=== PATIENT | male | born 1935 | race Caucasian/White ===

== ENCOUNTER 2017-10-08 11:58 | Inpatient (IN) ==
[2017-10-01 15:35] LABS: Basophils # (Auto) 0.1 K/mcL (0.0-0.3); Basophils % (Auto) 0.9 % (0.0-2.0); Eosinophils # (Auto) 0.5 K/mcL (0.0-0.7); Eosinophils % (Auto) 4.2 % (0.0-7.0); Granulocytes % (Auto) 58.2 % (38.0-78.0); Lymphocytes # (Auto) 2.8 K/mcL (1.5-4.8); Lymphocytes % (Auto) 25.3 % (15.5-49.0); Mean Cell Volume 88.1 fL (80.0-100.0); Mean Corpuscular HGB Conc 32.7 g/dL (31.0-36.0); Mean Corpuscular Hemoglobin 28.8 pg (26.0-34.0); Monocytes # (Auto) 1.3 K/mcL (0.1-0.9); Monocytes % (Auto) 11.4 % (1.0-12.0); Platelet Count 427 K/mcL (140-440); RBC 4.14 M/mcL (4.50-5.90); Red Cell Distribution Width 13.2 % (11.5-14.5)
[2017-10-01 15:45] LABS: Appearance,Urine CLEAR; Bilirubin,Urine NEG (NEG); Color,Urine YELLOW; Glucose,Urine (UA) NEGATIVE (NEG); Leukocyte Esterase,Urine NEG /uL (NEG); Protein,Urine NEG (NEG); Specific Gravity,Urine 1.021 (1.000-1.035); Urine Blood NEG mg/dL (<0.03); Urobilinogen,Urine NEG (NEG)
[2017-10-01 16:14] LABS: Blood Urea Nitrogen 18 mg/dl (8-23)
[~2017-10-08 11:58] MED LIST: CELECOXIB 200 MG CAPSULE PO SCH; PREGABALIN 75 MG CAPSULE PO SCH; ceFAZolin 1 GM VIAL IV SCH; oxyCODONE 10 MG TAB.ER.12H PO SCH
[2017-10-08] MEDS ORDERED: HEPARIN 10,000 UNIT/ML VIAL IR ONE (13:44)
[2017-10-08] MEDS ORDERED: LIDOCAINE HCL/PF 100 MG/5 ML SYRINGE IV ONE (14:05)
[2017-10-08] MEDS ORDERED: PROPOFOL 200 MG/20 ML VIAL IV ONE (14:05)
[2017-10-08] MEDS ORDERED: MIDAZOLAM 2 MG/2 ML VIAL IV ONE (14:05)
[2017-10-08] MEDS ORDERED: GLYCOPYRROLATE 0.2 MG/ML VIAL IV ONE (14:05)
[2017-10-08] MEDS ORDERED: PHENYLEPHRINE 10 MG/ML VIAL IV ONE (14:05)
[2017-10-08] MEDS ORDERED: KETAMINE 100 MG/ML ML IV ONE (14:05)
[2017-10-08] MEDS ORDERED: DEXAMETHASONE 10 MG/ML VIAL IV ONE (14:05)
[2017-10-08] MEDS ORDERED: ePHEDrine 50 MG/ML AMPUL IV ONE (14:05)
[2017-10-08] MEDS ORDERED: fentaNYL 100 MCG/2 ML VIAL IV ONE (14:05)
[2017-10-08] MEDS ORDERED: TRANEXAMIC ACID 1,000 MG/10 ML VIAL IV ONE ×2 (14:05→15:51)
[2017-10-08] MEDS ORDERED: ONDANSETRON 4 MG/2 ML VIAL IV ONE (14:05)
[2017-10-08] MEDS ORDERED: IPRATROPIUM/ALBUTEROL 3 ML AMPUL.NEB NEB PRN (14:29)
[2017-10-08] MEDS ORDERED: ACETAMINOPHEN 1,000 MG/100 ML BOTTLE IV ONE (14:29)
[2017-10-08] MEDS ORDERED: PROMETHAZINE 25 MG/ML VIAL IV PRN (14:29)
[2017-10-08] MEDS ORDERED: MEPERIDINE 25 MG/ML SYRINGE IV PRN (14:29)
[2017-10-08] MEDS ORDERED: BENZOCAINE/MENTHOL 1 LOZENGE PO PRN ×2 (14:29→15:51)
[2017-10-08] MEDS ORDERED: METHOCARBAMOL 1,000 MG/10 ML VIAL IV PRN (14:29)
[2017-10-08] MEDS ORDERED: fentaNYL 100 MCG/2 ML VIAL IV PRN (14:29)
[2017-10-08] MEDS ORDERED: ONDANSETRON 4 MG/2 ML VIAL IV PRN ×2 (14:29→15:51)
[2017-10-08] MEDS ORDERED: LACTATED RINGERS 250 ML IV PRN (14:29)
[2017-10-08] MEDS ORDERED: NALOXONE HCL 0.4 MG/ML VIAL IV PRN (14:29)
[2017-10-08] MEDS ORDERED: FLUMAZENIL 0.1 MG/ML ML IV PRN (14:29)
[2017-10-08] MEDS ORDERED: LACTATED RINGERS 1,000 ML IV SCH (14:30)
--- NOTE | 2017-10-08 15:49 | Brief Operative Note ---
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
[2017-10-08] MEDS ORDERED: MAGNESIUM HYDROXIDE 30 ML ORAL.SUSP PO PRN (15:51)
[2017-10-08] MEDS ORDERED: POLYETHYLENE GLYCOL 3350 17 GM PACKET PO PRN (15:51)
[2017-10-08] MEDS ORDERED: FLEETS ADULT ENEMA PR PRN (15:51)
[2017-10-08] MEDS ORDERED: BISACODYL 10 MG SUPP.RECT PR PRN (15:51)
--- NOTE | 2017-10-08 16:44 | XRay Report ---
HISTORY: Reason for Exam:Post-Op Total Hip FINDINGS: There is a well-positioned left total hip prosthesis. No fracture is present and there are no abnormal soft tissue calcifications around the joint. There are old healed fractures of the pubic bones. The L5 S1 disc space is severely narrowed. IMPRESSION: Well-positioned left hip prosthesis Interpreted and Authenticated by: Severiano Fine 10/08/17
[2017-10-08] MEDS: 0.9 % SODIUM CHLORIDE 1,000 ML IV SCH (17:24)
[2017-10-08] MEDS: KETOROLAC 15 MG/ML VIAL IV PRN (18:05)
[2017-10-08] MEDS: ASPIRIN 325 MG ENTERIC COATED TABLET PO SCH (19:05)
[2017-10-08] MEDS: DOCUSATE SODIUM 100 MG CAPSULE PO SCH (19:05)
[2017-10-08] MEDS: HYDROcodone/APAP 5/325MG TABLET PO PRN (19:05)
[2017-10-08] MEDS ORDERED: SENNOSIDES 1 TABLET PO SCH (21:00)
[2017-10-08] MEDS ORDERED: ZOLPIDEM 5 MG TABLET PO SCH (21:00)
[2017-10-08] MEDS: 0.9 % SODIUM CHLORIDE 10 ML SYRINGE IV SCH (23:12)
[2017-10-08] MEDS: ceFAZolin 1 GM VIAL IV SCH (23:21)
[2017-10-09] MEDS: 0.9 % SODIUM CHLORIDE 1,000 ML IV SCH ×2 (04:05→12:00)
[2017-10-09] MEDS: ceFAZolin 1 GM VIAL IV SCH (04:32)
[2017-10-09] MEDS: 0.9 % SODIUM CHLORIDE 10 ML SYRINGE IV SCH ×2 (04:33→16:08)
[2017-10-09] MEDS: HYDROcodone/APAP 5/325MG TABLET PO PRN ×3 (04:35→16:07)
[2017-10-09] MEDS: KETOROLAC 15 MG/ML VIAL IV PRN (04:36)
[2017-10-09] MEDS ORDERED: TAMSULOSIN 0.4 MG CAPSULE PO ONE (07:32)
--- NOTE | 2017-10-09 07:34 | Orthopedic Progress Note ---
Subjective Patient information: Note initiated : 10/09/17 at 7:32 am Service Date, if different from initiated Date: [] Patient: Mahamed Arvizu 81 y/o M admitted on 10/08/17 for Left Total Hip Anterior Arthroplasty and Removal . Chief Complaint: [] Interval history: unable to urinate, straight cathed, pain controlled Objective Vital signs: Vital Signs Temp Pulse Resp BP BP Pulse Ox 10/09/17 04:00 97.5 F 68 22 116/73 96 10/09/17 00:00 97.2 F 58 L 24 H 139/85 97 10/08/17 20:50 97.0 F 72 24 H 117/75 96 10/08/17 19:50 69 118/75 97 10/08/17 19:20 71 126/74 96 10/08/17 19:17 97 10/08/17 18:50 68 111/72 96 10/08/17 18:20 72 111/68 10/08/17 17:41 68 121/69 96 10/08/17 17:25 69 122/78 98 10/08/17 17:16 70 14 119/73 92 10/08/17 17:00 96.7 F L 72 12 110/72 97 10/08/17 16:46 97.7 F 80 18 109/73 98 10/08/17 16:36 86 19 113/72 98 10/08/17 16:31 75 15 117/72 100 10/08/17 16:26 73 18 126/74 100 10/08/17 16:21 76 16 118/76 100 10/08/17 16:16 70 15 115/71 99 10/08/17 16:11 71 15 110/69 99 10/08/17 16:06 97.8 F 78 18 108/67 98 10/08/17 12:00 97.3 F 81 18 149/84 96 Intake and Output 10/08/17 10/09/17 10/09/17 21:59 05:59 13:59 Intake Total 2440 / 2440 2600 / 2600 Output Total 300 / 300 700 / 700 Balance 2140 / 2140 1900 / 1900 Intake: IV 1000 / 1000 Sodium Chloride 0.9% 1,000 ml @ 1000 / 1000 100 mls/hr IV .Q10H [facility] Rx#: [id number] Oral 840 / 840 1600 / 1600 IV - Manual Only 1600 / 1600 Output: Urine Catheter Amount 700 / 700 Estimated Blood Loss 300 / 300 Other: Meal Dinner Percent of Meal Consumed 100% Weight 163 lb 8 oz Intake & Output: Intake & Output 10/08/17 10/09/17 10/09/17 21:59 05:59 13:59 Intake Total 2440 / 2440 2600 / 2600 Output Total 300 / 300 700 / 700 Balance 2140 / 2140 1900 / 1900 Weight 163 lb 8 oz Intake: IV 1000 / 1000 Sodium Chloride 0.9% 1,000 ml @ 1000 / 1000 100 mls/hr IV .Q10H [facility] Rx#: [id number] Oral 840 / 840 1600 / 1600 IV - Manual Only 1600 / 1600 Output: Urine Catheter Amount 700 / 700 Estimated Blood Loss 300 / 300 Other: Meal Dinner Percent of Meal Consumed 100% Dressing: Yes clean, Yes dry Neurological exam IM: Yes alert, Yes oriented X3 - Labs CBC & BMP: 10/09/17 04:05 10/01/17 13:30 Labs: 10/09/17 10/01/17 04:05 13:30 Hgb 10.2 L 11.9 L Hct 30.3 L 36.5 L Assessment and Plan (1) Status post total hip replacement, left POD#1-ambulating well with good pain control, unable to urinate -try Flomax d/c if able to urinate Status: Acute
--- NOTE | 2017-10-09 07:37 | Discharge Summary ---
Ortho Discharge - [facility] - Patient Instructions Diet: Regular Diet, High Fiber Activity: weight bearing as tolerated Total Hip Protocol: Follow activity instructions as provided by Physical Therapy. Dressing Care: Constantinel Ag - leave on for 5 days - Problem Maintenance (1) Status post total hip replacement, left Status: Acute - Follow Up Plan Follow Up Appointments: Omari Brand PA-C [[facility]] - 10/24/17 1:40 pm Disposition: Home, Self-Care Prognosis: Good Rehab Potential: Good - Orders For Discharge Prescriptions: Aspirin [Ecotrin] 325 mg PO BID #60 tab.ec HYDROcodone/APAP 5/325MG [[place] 5/325Mg] 1 - 2 tab PO Q4HP PRN #60 tab PRN Reason: Pain Additional Discharge Orders: Physical Therapy at Discharge - [facility] Location: Determined By Patient Toilet Riser Discharge Order Location: Determined By Patient Walker Location: Determined By Patient
--- NOTE | 2017-10-09 07:39 | Operative Note ---
DATE OF OPERATION: 10/08/2017 PREOPERATIVE DIAGNOSIS: Left hip avascular necrosis from prior femoral neck fracture. POSTOPERATIVE DIAGNOSIS: Left hip avascular necrosis from prior femoral neck fracture. PROCEDURES PERFORMED: 1. Hardware removal deep of 3 femoral neck screws. 2. Left anterior total hip arthroplasty placing a DePuy Actis size 12 standard offset femoral stem, a +5, 36 mm delta ceramic head ball, a 58 Patriot cup with a neutral AltrX liner. SURGEON: Giorgio Webber MD. STATE ASSESSED PROPERTIES DIRECTOR: Dandy Brand PA-C. ANESTHESIA: Spinal plus general. DRAINS: None. SPECIMENS: Femoral head and three removed screws. BLOOD LOSS: 250 mL COMPLICATIONS: None. POSTOPERATIVE CONDITION: Stable. INDICATIONS FOR SURGERY: This is an 81-year-old male who had prior history of a femoral neck fracture treated with percutaneous screw fixation. He developed acutely worsening left hip and groin pain over last several months and x-rays were negative; however, MRI was obtained and showed avascular necrosis of the femoral head. Physical exam was significant for painful hip ranges of motion. FINDINGS AT SURGERY: Avascular necrosis of the femoral head as well as the three retained screws. Post implantation showed good overall component position, leg length and offset baptism. PROCEDURE IN DETAIL: The patient had been seen preoperatively. Informed consent had been obtained after discussion of risks and benefits of surgery. Risks including, but not limited to, bleeding, possibly requiring transfusion; infection, possibly requiring implant removal and prolonged IV antibiotics; injury to nerves, blood vessels, and other surrounding structures; anesthetic risks; incomplete or no resolution of symptoms; dislocation, leg length discrepancy; DVT and pulmonary embolus risks; and the possibility of needing further revision surgery. He understood these risks and wished to proceed. The correct operative site was marked and then patient was taken to the operating room. General anesthesia was induced after spinal was given in preop holding. He was then transferred to the fracture table and the left hip and groin were carefully prepped and draped in normal sterile fashion. A timeout was performed verifying patient name, operative site, and plan. A standard anterior approach incision was made with a scalpel through skin and subcutaneous tissue. Hemostasis was obtained with Bovie cautery. Careful blunt dissection was taken down onto the tensor fascia and this was undermined circumferentially. IrriSept was irrigated and then a ring retractor placed. The tensor fascia was incised in line with the muscle fibers and then careful blunt dissection taken medial to the muscle belly. At this point, we actually then decided to remove hardware through his anterior incision so the hip was internally rotated as much as possible. We then used fluoroscopy to identify the level of the screws and then used Bovie through the vastus fascia to expose the screws. We identified two screws. These were partially overgrown with bone so osteotome was used around the heads to expose them and then we used the screwdriver to remove them. The third one we could not find so fluoro was brought back in and we identified that the screw head was actually overgrown with bone. An osteotome was used to chisel out the bone from around the screw head and then backed this out as well. We then proceeded back to our total hip procedure placing blunt cobra retractors on the superior and inferior neck. We then coagulated and cut the circumflex vessels and split the vastus fascia distally. An anterior capsulectomy was performed and capsule releases were taken out towards the lesser and out towards the greater trochanter. We then placed two turns of traction on the hip and then a corkscrew was placed in the femoral head. Osteotome was used under fluoro to identify our approximate neck cut and oscillating tip to make our osteotomy. The head was then removed and the acetabulum exposed. We removed the labrum, what remained circumferentially and released the inferior capsule. It was noted almost from the beginning significant scar tissue and making the procedure more difficult. We removed soft tissue from the floor of the acetabulum and then started reaming, initially directly medializing to the tear drop and then increasing reamer size and angle. It took all the way to a 57 reamer to get some rim ream. We opened the 58 3-hole cup. Acetabulum was irrigated with IrriSept and after a minute we pulse lavaged copiously with saline. We then impacted the cup at approximately 35 to 40 degrees of inclination and 15 to 20 degrees of anteversion. We did get press fit; however, due to his poor bone quality, I went ahead and drilled and placed one screw. This was awfully short, so we went ahead and drilled and placed a second screw. We then placed a center hole cover. A neutral AltrX liner was carefully aligned and impacted and verified to be fully seated. We released traction from the leg and externally rotated, we released capsule down to the lesser trochanter and around the posterior neck and the leg was extended and adducted. Again, exposure was still difficult due to the scarring. We released capsule out towards the greater trochanter and along the posterior neck. A box osteotome and then awl used to identify canal trajectory and then a rongeur and rasp to lateralize. We then began sequentially broaching up to a size 11, which seemed to get press fit right around our neck cut level. We then trialed a +1.5 head ball. The hip was reduced without excessive tension. AP pelvis was taken and then AP of the nonoperative and operative hips. Overlay revealed maybe some slightly shortened operative side still. The stem also appeared slightly undersized. We redislocated and indeed I was able to impact the broach below our neck cut level by a couple millimeters, so I went up to a size 12 broach, which seated right at the neck cut so we opened a 12 standard Actis stem. We irrigated the femoral canal with IrriSept. After a minute we pulse lavaged copiously with saline and then impacted the stem. It seated down on our neck cut. Our overlay of x-ray revealed slight shortening with a 1.5 head ball so we went up to a +5. The stem was carefully cleaned and dried, the head ball briskly impacted. The hip was reduced. Final fluoroscopy images were taken, saved and printed. We irrigated with IrriSept. After a minute we pulse lavaged with saline and then #1 Vicryl running stitch was used to close the tensor fascia, one running proximal and one running distal. We then removed our ruing retractor, irrigated with IrriSept again. After a minute we pulse lavaged and then fat was tacked to fascia with #1 Vicryl, 2-0 Monocryl was used for subcu and danna for skin. Xeroform and sterile dressing were applied. The patient was then awakened, extubated, and transferred to recovery in stable condition. JALIL:curtis Job ID: [id number] Doc ID: [id number] Giorgio Webber MD
[2017-10-09] MEDS: ASPIRIN 325 MG ENTERIC COATED TABLET PO SCH (07:49)
[2017-10-09] MEDS: DOCUSATE SODIUM 100 MG CAPSULE PO SCH (07:49)
== END 2017-10-09 18:06 | disposition home or self-care (01) | DRG 470 ==
LOC: MEDSUR 11:58
PROVIDERS: ADMIT Orthopaedic Surgery; ATTEND Orthopaedic Surgery